=== PATIENT | female | born 1985 | race Caucasian/White ===

== ENCOUNTER 2023-04-20 13:23 | Emergency (ER) | payer MEDICAID ==
[~2023-04-20] VITALS: Ht 170.2 cm; Wt 230.0 kg
[2023-04-20 14:32] VITALS: BP 129/85; PULSE 89; RESP 18; O2SAT 98
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
[2023-04-20] MEDS ORDERED: ALPR-624 PO ×2 (16:57→17:22)
[2023-04-20 17:27] VITALS: TEMP 97
== END 2023-04-20 17:44 | disposition home or self-care (01) ==
LOC: EDBD 13:24 → ER 13:24
DX: F41.9 Anxiety disorder, unspecified (principal); Z91.040 Latex allergy status; Z88.0 Allergy status to penicillin
CPT/HCPCS: 99283

== ENCOUNTER 2023-06-13 20:33 | Emergency (ER) | payer MEDICAID ==
[~2023-06-13] VITALS: Ht 170.2 cm; Wt 118.2 kg
[~2023-06-13 20:33] MED LIST: ALPR-624 PO
[2023-06-13 21:25] LABS: EOSINOPHILS # (AUTO) 0.1 X10'3 (0-0.9); EOSINOPHILS % (AUTO) 1.2 % (0-6)
[2023-06-13 21:27] LABS: BASOPHILS # (AUTO) 0.1 X10'3 (0-0.2); BASOPHILS % (AUTO) 0.7 % (0-1); HEMATOCRIT 41.6 % (35.0-45.0); HEMOGLOBIN 13.9 g/dl (12.0-16.0); LYMPHOCYTES # (AUTO) 2.7 X10'3 (1.1-4.8); LYMPHOCYTES % (AUTO) 26.5 % (21-51); MEAN CORPUSCULAR HEMOGLOBIN 30.6 PG (27.0-31.0); MEAN CORPUSCULAR HGB CONC 33.4 g/dL (33.0-36.5); MEAN CORPUSCULAR VOLUME 91.4 FL (78-98); MEAN PLATELET VOLUME 8.6 FL (7.4-10.4); MONOCYTES # (AUTO) 0.7 X10'3 (0-0.9); MONOCYTES % (AUTO) 6.7 % (2-12); NEUTROPHILS # (AUTO) 6.5 X10'3 (1.8-7.7); NEUTROPHILS % (AUTO) 64.9 % (42-75); PLATELET COUNT 304 X10'3 (140-440); RED BLOOD COUNT 4.55 X10'6 (4.20-5.60); RED CELL DISTRIBUTION WIDTH 14.6 % (11.5-14.5)
[2023-06-13 21:40] LABS: ALANINE AMINOTRANSFERASE 16 U/L (12-78); ALBUMIN 3.6 G/DL (3.4-5.0); ALBUMIN/GLOBULIN RATIO 1.2 (1.1-1.5); ALKALINE PHOSPHATASE 138 IU/L (46-116); ANION GAP 7 (8-16); ASPARTATE AMINO TRANSFERASE 11 U/L (10-37); BILIRUBIN,TOTAL 0.5 MG/DL (0.1-1.0); BLOOD UREA NITROGEN 9 MG/DL (7-18); BUN/CREATININE RATIO 9.9 (10.0-20.0); CALCIUM 9.1 MG/DL (8.5-10.1); CHLORIDE 103 MMOL/L (99-107); CREATININE 0.91 MG/DL (0.40-0.90); GLUCOSE 124 MG/DL (70-104); LIPASE 19 U/L (16-77); POTASSIUM 3.5 MMOL/L (3.5-5.1); SODIUM 139 MMOL/L (135-145); TOTAL CARBON DIOXIDE 29.1 MMOL/L (24-32); TOTAL PROTEIN 6.7 G/DL (6.4-8.2); eCRCL 83 ML/MIN; eGFR 70 ML/MIN
[2023-06-13 22:00] LABS: URINE HCG NEGATIVE (NEG)
[2023-06-13 22:02] LABS: BILIRUBIN,URINE NEGATIVE (Neg); CLARITY,URINE SLIGHTLY CLOUDY (Clear); COLOR,URINE YELLOW (Yellow); GLUCOSE, URINE NEGATIVE (Neg); KETONES,URINE NEGATIVE (Neg); LEUKOCYTE ESTERASE ,URINE NEGATIVE (Neg); NITRITES, URINE NEGATIVE (Neg); OCCULT BLOOD,URINE NEGATIVE (Neg); PROTEIN,URINE NEGATIVE (Neg); UROBILINOGEN,URINE 0.2 E.U/dL (0.2-1.0)
[2023-06-13 22:06] LABS: UA COLLECTION TYPE CLN CATCH MIDSTREAM
[2023-06-13 22:10] LABS: RBC,URINE 0-2 /HPF (0-2)
[2023-06-13 22:11] LABS: BACTERIA,URINE 1+ /HPF (Neg); MUCUS STRANDS FEW /LPF (Neg); SQUAMOUS EPITHELIAL CELL,UR MODERATE /LPF (FEW); TRANSITIONAL EPI CELLS,URINE FEW /HPF
[2023-06-14] MEDS ORDERED: HYDROcodone/acetaminophen 10/325mg tab PO ONE (00:30)
[2023-06-14] MEDS ORDERED: ondansetron 4mg rapidly disintigrating tab PO ONE (00:30)
[2023-06-14] MEDS ORDERED: LIDOcaine Viscous 15ml cup MM ONE (02:00)
[2023-06-14] MEDS ORDERED: famotidine 20mg tablet PO ONE (02:00)
[2023-06-14] MEDS ORDERED: mag hydrox/Alum hydrox/simeth 30ml oral suspension PO ONE (02:00)
[2023-06-14] MEDS ORDERED: FAMO-128 PO (03:39)
[2023-06-14] MEDS ORDERED: DOCU-171 PO (03:39)
[2023-06-14 03:56] VITALS: BP 136/86; PULSE 65; RESP 18; TEMP 98.6; O2SAT 98
== END 2023-06-14 03:58 | disposition home or self-care (01) ==
LOC: ER 20:35
DX: R10.13 Epigastric pain (principal); Z88.0 Allergy status to penicillin; Z91.040 Latex allergy status; Z79.899 Other long term (current) drug therapy
CPT/HCPCS: 76700; 80053; 81001; 81025; 83690; 85025; 87088; 99284